=== PATIENT | female | born 1945 | race Caucasian/White ===

== ENCOUNTER 2016-10-19 21:18 | Emergency (ER) | payer MEDICARE, MEDICAID ==
[~2016-10-19 21:18] MED LIST: AMIODARONE HCL 150 MG/3 ML VIAL IVPB ONE; EPINEPHrine INJ 0.1 MG/ML 10 ML SYG ONE; LIDOCAINE 2% 100 MG/5 ML SYG IV ONE; SODIUM BICARBONATE SYRINGE 50 MEQ/50 ML SYG IV ONE; SODIUM CHLORIDE 0.9% (FLUSH) 10 ML SYG ONE; SODIUM CHLORIDE 0.9% 1000ML 1,000 ML IVS ONE
--- NOTE | 2016-10-19 21:42 | RAD ---
PROCEDURE: XR CHEST 1 VIEW HISTORY: cpr in progress COMPARISON: None TECHNIQUE: Single projection of the chest was done. FINDINGS: The tip of the endotracheal tube is 4.5 cm above the tracheal bifurcation. There is mild bilateral vascular congestion, suspicious for underlying changes of mild volume overload. There is minimal thickening of the right horizontal fissure . There are no discrete airspace infiltrates, pneumothoraces or pleural effusions. The cardiomediastinal contour is unremarkable . IMPRESSION: The tip of the endotracheal tube is 4.5 cm above the tracheal bifurcation. There is mild bilateral vascular congestion, suspicious for underlying changes of mild volume overload. There is minimal thickening of the right horizontal fissure . Electronically signed by: Miguel Graham MD 10/19/2016 9:40 PM CDT
[2016-10-20 02:48] VITALS: BP 65/29
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
== END 2016-10-19 21:52 | disposition expired ==
LOC: ER 21:18
DX: I46.9 Cardiac arrest, cause unspecified (principal)
CPT/HCPCS: 31500; 71010; 92950; 94770; A4216; J0282; J7030